=== PATIENT | male | born 1975 | race Caucasian/White ===

== ENCOUNTER 2017-05-17 20:46 | Emergency (ER) | payer OTHER ==
[~2017-05-17] VITALS: Ht 167.6 cm; Wt 77.0 kg
[~2017-05-17 20:46] MED LIST: AUGMENTIN875 MG PO; DEPAKOTE ER250 MG PO; DEPAKOTE250 MG PO; DEPAKOTE500 MG PO; DOCUSATE SODIU100 MG PO; FLEXERIL10 MG PO; FLEXERIL5 MG PO; GABAPENTIN100 MG PO; GABAPENTIN400 MG PO; GEODON; HYDROCODON-ACE1 EAC7 PO; INDOCIN25 MG PO; LATUDA40 MG PO; METHADONE 22 MG/1 ML PO; METHADONE HCL40 MG PO; METHADONE1 MG/1 ML PO; METHADOSE40 MG PO; MOTRIN600 MG PO; MOTRIN800 MG PO; NORCO 5/3251 TABLET PO; OXYCODONE-APAP1 EACH PO; PREDNISONE20 MG PO; PREDNISONE50 MG PO; PROZAC10 MG PO; QUETIAPINE FUM100 MG PO; QUETIAPINE FUMA25 MG PO; SEROQUEL100 MG PO; SEROQUEL300 MG PO; TRAMADOL HCL50 MG PO; TRAZODONE; TRILEPTAL; ULTRAM50 MG PO; ZOFRAN ODT4 MG PO
[2017-05-18 01:08] VITALS: BP 127/68
== END 2017-05-18 01:09 | disposition home or self-care (01) ==
LOC: EME 20:46
DX: R41.0 Disorientation, unspecified (principal); Z59.0 Homelessness; R06.2 Wheezing; F17.200 Nicotine dependence, unspecified, uncomplicated
CPT/HCPCS: 99281; 99283

== ENCOUNTER 2017-09-20 18:37 | Emergency (ER) | payer OTHER | END 2017-09-20 19:16 | disposition left against medical advice (07) | LOC: EME 18:37 | DX: T50.991A Poisoning by other drugs, medicaments and biological substances, accidental (unintentional), initial encounter (principal); Z53.21 Procedure and treatment not carried out due to patient leaving prior to being seen by health care provider ==